=== PATIENT | male | born 1995 | race Caucasian/White ===

== ENCOUNTER 2024-06-05 11:50 | Emergency (ER) | payer MEDICAID ==
[~2024-06-05] VITALS: Ht 177.8 cm; Wt 69.0 kg
[2024-06-05] MEDS ORDERED: CEPH-585 PO (13:54)
[2024-06-05] MEDS ORDERED: SULF1TAB45 PO (13:54)
[2024-06-05 14:36] VITALS: BP 118/71; PULSE 99; RESP 18; TEMP 98.4; O2SAT 99
== END 2024-06-05 14:33 | disposition home or self-care (01) ==
LOC: ER 11:50
DX: L02.31 Cutaneous abscess of buttock (principal); L03.317 Cellulitis of buttock
CPT/HCPCS: 99283

== ENCOUNTER 2024-06-29 19:41 | Emergency (ER) | payer MEDICAID ==
[~2024-06-29] VITALS: Ht 177.8 cm; Wt 70.1 kg
[~2024-06-29 19:41] MED LIST: CEPH-585 PO
[2024-06-29] MEDS ORDERED: CEFTRIAXONE 500 MG VIAL IM STA (22:21)
[2024-06-29] MEDS ORDERED: DOLU50TA PO (22:33)
[2024-06-29] MEDS ORDERED: DOXY-1 PO (22:33)
[2024-06-29] MEDS ORDERED: EMTR1TAB12 PO (22:33)
[2024-06-29 22:45] LABS: BASOPHILS # (AUTO) 0.1 X10'3 (0-0.2); BASOPHILS % (AUTO) 0.9 % (0-1); EOSINOPHILS # (AUTO) 0.2 X10'3 (0-0.9); EOSINOPHILS % (AUTO) 2.1 % (0-6); HEMATOCRIT 42.5 % (42.0-52.0); MEAN CORPUSCULAR HEMOGLOBIN 29.1 PG (27.0-31.0); MEAN CORPUSCULAR HGB CONC 32.9 g/dL (33.0-36.5); MEAN CORPUSCULAR VOLUME 88.3 FL (78-98); MEAN PLATELET VOLUME 7.6 FL (7.4-10.4); MONOCYTES # (AUTO) 0.7 X10'3 (0-0.9); NEUTROPHILS # (AUTO) 5.8 X10'3 (1.8-7.7); PLATELET COUNT 301 X10'3 (140-440); RED BLOOD COUNT 4.81 X10'6 (4.70-6.10); RED CELL DISTRIBUTION WIDTH 13.5 % (11.5-14.5); WHITE BLOOD COUNT 8.8 X10'3 (4.5-11.0)
[2024-06-29] MEDS: DOXYCYCLINE 100MG CAPSULE PO STA (22:48)
[2024-06-29] MEDS: CefTRIAXone 500MG IM Kit w/LIDOcaine IM ONE (22:48)
[2024-06-29 23:08] LABS: ALANINE AMINOTRANSFERASE 22 U/L (12-78); ALBUMIN 3.5 G/DL (3.4-5.0); ALBUMIN/GLOBULIN RATIO 0.9 (1.1-1.5); ALKALINE PHOSPHATASE 101 IU/L (46-116); ANION GAP 8 (8-16); ASPARTATE AMINO TRANSFERASE 17 U/L (10-37); BILIRUBIN,TOTAL 0.4 MG/DL (0.1-1.0); BLOOD UREA NITROGEN 10 MG/DL (7-18); BUN/CREATININE RATIO 8.9 (10.0-20.0); CALCIUM 8.8 MG/DL (8.5-10.1); CHLORIDE 103 MMOL/L (99-107); CREATININE 1.12 MG/DL (0.60-1.10); GLUCOSE 111 MG/DL (70-104); POTASSIUM 3.5 MMOL/L (3.5-5.1); SODIUM 139 MMOL/L (135-145); TOTAL CARBON DIOXIDE 28.2 MMOL/L (24-32); TOTAL PROTEIN 7.2 G/DL (6.4-8.2); eCRCL 99 ML/MIN; eGFR 79 ML/MIN
[2024-06-29 23:31] VITALS: BP 159/82; PULSE 109; RESP 18; TEMP 98.5; O2SAT 98
[2024-06-29 23:33] LABS: HIV ANTIBODY 1&2 RAPID NON-REACTIVE (Neg)
[2024-06-30] MEDS ORDERED: RALT400T PO (19:01)
== END 2024-06-29 23:25 | disposition home or self-care (01) ==
LOC: ER 19:42
DX: A63.8 Other specified predominantly sexually transmitted diseases (principal); Z79.2 Long term (current) use of antibiotics; Z79.899 Other long term (current) drug therapy
CPT/HCPCS: 36415; 80053; 85025; 86592; 86703; 96372; 99283; J0696

== ENCOUNTER 2024-06-30 17:16 | Emergency (ER) | payer MEDICAID ==
[~2024-06-30] VITALS: Ht 177.8 cm; Wt 68.0 kg
[~2024-06-30 17:16] MED LIST changes: +DOLU50TA PO; +DOXY-1 PO; +EMTR1TAB12 PO
[2024-06-30] MEDS ORDERED: RALT400T PO (19:01)
[2024-06-30 19:09] VITALS: BP 130/85; PULSE 95; RESP 16; TEMP 97.9; O2SAT 98
== END 2024-06-30 19:10 | disposition home or self-care (01) ==
LOC: ER 17:16
DX: Z20.6 Contact with and (suspected) exposure to human immunodeficiency virus [HIV] (principal); Z79.2 Long term (current) use of antibiotics; Z79.899 Other long term (current) drug therapy
CPT/HCPCS: 99283